=== PATIENT | male | born 2000 | race Caucasian/White ===

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

== ENCOUNTER 2020-11-21 12:44 | Emergency (ER) | payer MEDICAID ==
[~2020-11-21] VITALS: Ht 182.9 cm; Wt 91.0 kg
[2020-11-21] MEDS ORDERED: AMOXICILLIN875 MG PO (13:30)
[2020-11-21 13:50] VITALS: BP 138/87
== END 2020-11-21 13:50 | disposition home or self-care (01) ==
LOC: ED 12:44
DX: K04.7 Periapical abscess without sinus (principal); F41.9 Anxiety disorder, unspecified; F32.9 Major depressive disorder, single episode, unspecified

== ENCOUNTER 2021-08-27 10:05 | Emergency (ER) | payer MEDICAID ==
[2021-08-27] VITALS (7 sets, daily range): BP systolic 145–155; BP diastolic 95–106
[~2021-08-27] VITALS: Ht 182.9 cm; Wt 100.0 kg
[~2021-08-27 10:05] MED LIST changes: +AMOXICILLIN875 MG PO
[2021-08-27] MEDS ORDERED: CLINDAMYCIN300 M1 PO (10:55)
[2021-08-27] MEDS ORDERED: HYDROCO/APAP1 TA9 PO (10:55)
== END 2021-08-27 11:05 | disposition home or self-care (01) ==
LOC: ED 10:05
DX: K04.7 Periapical abscess without sinus (principal); K02.9 Dental caries, unspecified; M84.68XA Pathological fracture in other disease, other site, initial encounter for fracture; F41.9 Anxiety disorder, unspecified; F32.A Depression, unspecified